=== PATIENT | male | born 1955 | race African-American/Black ===

== ENCOUNTER 2023-06-12 12:20 | Inpatient (IN) | payer OTHER ==
[2023-06-12 12:51] VITALS: BMI 21.9
[2023-06-12] MEDS ORDERED: ONDANSETRON *ODT* 4 MG TABLET SL PRN (14:04)
[2023-06-12] MEDS ORDERED: cloNIDine HCL 0.1 MG TABLET PO PRN (14:04)
[2023-06-12] MEDS ORDERED: IBUPROFEN 400 MG TABLET (FP) PO PRN (14:04)
[2023-06-12] MEDS ORDERED: AMMONIUM LACTATE 12% LOTION 225 GM BOTTLE TP PRN (14:04)
[2023-06-12] MEDS ORDERED: BISMUTH SUBSALICYLATE 524 MG/30 ML PO PRN (14:04)
[2023-06-12] MEDS ORDERED: MAGNESIUM HYDROX 2400MG/30ML ORAL SUSPENSION 30 ML CUP PO PRN (14:04)
[2023-06-12] MEDS ORDERED: ACETAMINOPHEN 325 MG TABLET (FP) PO PRN (14:04)
[2023-06-12] MEDS ORDERED: MAG HYDROX/AL HYDROX/SIMETH 30 ML UNIT-DOSE CUP PO PRN (14:04)
[2023-06-12] MEDS ORDERED: methaDONE HCL 10 MG TABLET (FOR DETOX USE ONLY) PO ONE (14:04)
[2023-06-12] MEDS ORDERED: DICYCLOMINE HCL 10 MG CAPSULE PO PRN (14:04)
[2023-06-12] MEDS ORDERED: NALOXONE HCL (KLOXXADO) 8 MG SPRAY NS PRN (14:04)
[2023-06-12] MEDS ORDERED: COLLOIDAL OATMEAL 1 BAR EACH TP PRN (14:04)
[2023-06-12] MEDS ORDERED: BENZOCAINE/MENTHOL (CHLORASEPTIC ) LOZENGE MM PRN (14:04)
[2023-06-12] MEDS ORDERED: guaiFENesin 600 MG TABLET.ER (FP) PO PRN (14:04)
[2023-06-12] MEDS ORDERED: POLYETHYLENE GLYCOL (HEALTHYLAX) 3350 17 GM PACKET PO PRN (14:04)
[2023-06-12] MEDS ORDERED: LOPERAMIDE HCL 2 MG CAPSULE PO PRN (14:04)
[2023-06-12] MEDS ORDERED: NALOXONE HCL 0.4 MG/ML VIAL IM PRN (14:04)
[2023-06-12] MEDS ORDERED: clonazePAM 0.5 MG ODT TABLETS SL PRN (14:04)
[2023-06-12] MEDS ORDERED: NICOTINE 14 MG/24 HOURS TOPICAL PATCH TD PRN (14:04)
[2023-06-12] MEDS ORDERED: BENZONATATE 200 MG CAPSULE PO PRN (14:04)
[2023-06-12] MEDS ORDERED: methaDONE HCL 10 MG TABLET (FOR DETOX USE ONLY) ONE (15:39)
[2023-06-12] MEDS: THIAMINE HCL 100 MG TABLET (FP) PO SCH (22:40)
[2023-06-12] MEDS: MELATONIN 5 MG TABLETS PO SCH (22:40)
[2023-06-13] MEDS ORDERED: levETIRAcetam 500 MG TABLET (FP) PO ONE (10:38)
[2023-06-13] MEDS ORDERED: LISINOPRIL 5 MG TABLET PO SCH (10:45)
[2023-06-13] MEDS: PRENATAL VITAMINS W/ FOLIC ACID TABLET (FP) PO SCH (10:55)
[2023-06-13 12:41] LABS: POTASSIUM 4.4 mmol/L (3.5-5.1)
[2023-06-13 12:44] LABS: ALBUMIN 2.2 g/dl (3.4-5.0); BLOOD UREA NITROGEN 15.2 mg/dL (7-18)
[2023-06-13 12:47] LABS: CREATININE 0.9 mg/dL (0.55-1.3)
[2023-06-13 12:48] LABS: TOT PROT 7.1 g/dl (6.4-8.2)
[2023-06-13 12:49] LABS: BILIRUBIN,TOTAL 0.3 mg/dL (0.2-1); HEMATOCRIT 34.1 % (35.4-49); MCH 30.7 pg (25.7-33.7); MCHC 32.4 g/dl (32.0-35.9); MEAN CELL VOLUME 94.7 fl (80-96); MEAN PLT VOLUME 6.9 fl (7.5-11.1); PLATELET COUNT 449 10^3/uL (134-434); RDW 15.2 % (11.9-15.9); WHITE BLOOD COUNT 8.3 K/mm3 (4.0-10.0)
[2023-06-13 12:57] LABS: CALCIUM 8.7 mg/dL (8.5-10.1)
[2023-06-13 13:44] LABS: SICKLE CELL SCREEN NEGATIVE (NEGATIVE)
[2023-06-13] MEDS: MELATONIN 5 MG TABLETS PO SCH (21:05)
[2023-06-13] MEDS: THIAMINE HCL 100 MG TABLET (FP) PO SCH (21:05)
[2023-06-14] MEDS ORDERED: TAMSULOSIN HCL 0.4 MG CAP PO SCH (08:30)
[2023-06-14] MEDS: TAMSULOSIN HCL 0.4 MG CAP PO SCH (09:19)
[2023-06-14] MEDS: levETIRAcetam 500 MG TABLET (FP) PO SCH (09:20)
[2023-06-14] MEDS: PRENATAL VITAMINS W/ FOLIC ACID TABLET (FP) PO SCH (09:20)
[2023-06-14] MEDS ORDERED: methaDONE HCL 10 MG TABLET (FOR DETOX USE ONLY) PO ONE (10:00)
[2023-06-14] MEDS: MELATONIN 5 MG TABLETS PO SCH (23:39)
[2023-06-14] MEDS: THIAMINE HCL 100 MG TABLET (FP) PO SCH (23:40)
[2023-06-15] MEDS: IBUPROFEN 600 MG TABLET (FP) PO PRN ×2 (03:59→22:38)
[2023-06-15] MEDS: METHOCARBAMOL 500 MG TABLET PO PRN ×2 (03:59→22:37)
[2023-06-15] MEDS: TAMSULOSIN HCL 0.4 MG CAP PO SCH (09:20)
[2023-06-15] MEDS: levETIRAcetam 500 MG TABLET (FP) PO SCH (09:20)
[2023-06-15] MEDS: PRENATAL VITAMINS W/ FOLIC ACID TABLET (FP) PO SCH (09:20)
[2023-06-15] MEDS: THIAMINE HCL 100 MG TABLET (FP) PO SCH (22:37)
[2023-06-15] MEDS: MELATONIN 5 MG TABLETS PO SCH (22:37)
[2023-06-16] MEDS: IBUPROFEN 600 MG TABLET (FP) PO PRN ×2 (05:40→22:35)
[2023-06-16] MEDS: METHOCARBAMOL 500 MG TABLET PO PRN ×2 (07:38→22:38)
[2023-06-16] MEDS: TAMSULOSIN HCL 0.4 MG CAP PO SCH (07:49)
[2023-06-16] MEDS ORDERED: methaDONE HCL 10 MG TABLET (FOR DETOX USE ONLY) PO ONE (10:00)
[2023-06-16] MEDS: PRENATAL VITAMINS W/ FOLIC ACID TABLET (FP) PO SCH (10:36)
[2023-06-16] MEDS: levETIRAcetam 500 MG TABLET (FP) PO SCH (10:37)
[2023-06-16] MEDS: THIAMINE HCL 100 MG TABLET (FP) PO SCH (22:36)
[2023-06-16] MEDS: MELATONIN 5 MG TABLETS PO SCH (22:36)
[2023-06-17] MEDS: METHOCARBAMOL 500 MG TABLET PO PRN (06:06)
[2023-06-17] MEDS: TAMSULOSIN HCL 0.4 MG CAP PO SCH (07:46)
[2023-06-17] MEDS: levETIRAcetam 500 MG TABLET (FP) PO SCH (09:24)
[2023-06-17] MEDS: PRENATAL VITAMINS W/ FOLIC ACID TABLET (FP) PO SCH (09:25)
[2023-06-17 09:37] VITALS: BP 121/61; PULSE 77; RESP 18; TEMP 97.3
== END 2023-06-17 10:15 | disposition home or self-care (01) | DRG 897 ==
LOC: YASAS 12:20 → Y6N 15:49
PROVIDERS: ADMIT Allergy & Immunology; ATTEND Allergy & Immunology
PROC: HZ2ZZZZ Detoxification Services for Substance Abuse Treatment (ICD-10-PCS; principal; 2023-06-12)
DX: F11.23 Opioid dependence with withdrawal (principal); F14.90 Cocaine use, unspecified, uncomplicated; F17.210 Nicotine dependence, cigarettes, uncomplicated; M41.9 Scoliosis, unspecified; L84 Corns and callosities; I73.9 Peripheral vascular disease, unspecified; Z28.310 Unvaccinated for COVID-19
CPT/HCPCS: 36415; 73130-TC-LT-FY; 73130-TC-RT-FY; 80053; 85027; 85660; 86780; 87635; 93005; 93010